=== PATIENT | male | born 1930 | race Caucasian/White ===

== ENCOUNTER 2019-11-19 12:19 | Day surgery (SDC) | payer MEDICARE ==
[~2019-11-19] VITALS: Ht 172.7 cm; Wt 108.0 kg
[2019-11-19] MEDS ORDERED: LACTATED RINGERS 1,000 ML IV SCH (12:37)
[2019-11-19] MEDS ORDERED: CARV6.252 PO (13:05)
[2019-11-19] MEDS ORDERED: OMEG1CAP2 PO (13:05)
[2019-11-19] MEDS ORDERED: TIOT4MIS3 INH (13:05)
[2019-11-19] MEDS ORDERED: SIMV40TA3 PO (13:05)
[2019-11-19] MEDS ORDERED: CLOB15CR19 TP (13:05)
[2019-11-19] MEDS ORDERED: BUME0.5T2 PO (13:05)
[2019-11-19] MEDS ORDERED: POTA10TA31 PO (13:05)
[2019-11-19] MEDS ORDERED: EZET10TA70 PO (13:05)
[2019-11-19] MEDS ORDERED: ZOLP10TA5 PO (13:05)
[2019-11-19 13:07] VITALS: BP 130/78
[2019-11-19] MEDS ORDERED: PLEASE ENTER ALLERGIES MC SCH (13:30)
[2019-11-19] MEDS ORDERED: PLEASE ENTER HEIGHT AND WEIGHT MC SCH (13:30)
[2019-11-19 14:00] LABS: ALANINE AMINOTRANSFERASE 23 U/L (12-78); ALBUMIN 3.6 g/dL (3.4-5.0); ANION GAP 5 mmol/L (5-15); CALCIUM 8.7 mg/dL (8.5-10.1); CHLORIDE 111 mmol/L (98-107); CREATININE 1.18 mg/dL (0.7-1.3)
[2019-11-19 14:02] LABS: ALKALINE PHOSPHATASE 70 U/L (45-117); BILIRUBIN,TOTAL 1.9 mg/dL (0.2-1.0)
[2019-11-19] MEDS ORDERED: FENTANYL PF 250 MCG/5ML ONE (15:07)
[2019-11-19] MEDS ORDERED: MIDAZOLAM 1 MG/ML, 2ML ONE (15:07)
[2019-11-19] MEDS ORDERED: PHENYLEPHRINE 10 MG/ML ONE (15:37)
[2019-11-19] MEDS ORDERED: CEFAZOLIN 1,000 MG ONE (15:37)
[2019-11-19] MEDS ORDERED: ROCURONIUM 10 MG/ML,10ML ONE (15:37)
[2019-11-19] MEDS ORDERED: DEXAMETHASONE 4 MG/ML, 1ML ONE (15:37)
[2019-11-19] MEDS ORDERED: PROPOFOL 10 MG/ML, 20ML ONE (15:37)
[2019-11-19] MEDS ORDERED: ONDANSETRON 2MG/ML, 2ML ONE (15:37)
[2019-11-19] MEDS ORDERED: SUGAMMADEX 200 MG/2 ML IVPush ONE (16:08)
[2019-11-19 16:15] LABS: MICROSCOPIC AUTO
[2019-11-19] MEDS ORDERED: hydrALAzine 20 MG/ML, 1ML ONE (16:56)
[2019-11-19] MEDS ORDERED: OXYcodone 5 MG/5 ML ORAL.SOL UDC PO PRN (17:00)
[2019-11-19] MEDS ORDERED: MEPERIDINE/PF 25MG/ML,1ML IVPush PRN (17:00)
[2019-11-19] MEDS ORDERED: HYDROmorphone 2 MG/ML, 1ML IVPush PRN (17:00)
[2019-11-19] MEDS ORDERED: ONDANSETRON 2MG/ML, 2ML IV PRN (17:00)
[2019-11-19] MEDS ORDERED: hydrALAzine 20 MG/ML, 1ML IV PRN (17:00)
[2019-11-19] MEDS ORDERED: FENTANYL PF 100 MCG/2ML IV PRN (17:00)
[2019-11-19] MEDS ORDERED: OPIUM/BELLADONNA SUPP.RECT 16.2-60 MG ONE (17:09)
[2019-11-19] MEDS ORDERED: OPIUM/BELLADONNA SUPP.RECT 16.2-60 MG PR PRN (17:30)
[2019-11-19] MEDS ORDERED: MORPHINE SULFATE 4 MG/ML, 1ML IV PRN (18:30)
== END 2019-11-19 20:00 | disposition home or self-care (01) ==
LOC: OUT 12:19 → 4NE 17:56 → OUT 20:00
PROVIDERS: ATTEND Urology
DX: C67.5 Malignant neoplasm of bladder neck (principal); I10 Essential (primary) hypertension; G47.33 Obstructive sleep apnea (adult) (pediatric); I25.2 Old myocardial infarction; N52.9 Male erectile dysfunction, unspecified; Z79.899 Other long term (current) drug therapy; Z88.1 Allergy status to other antibiotic agents; Z95.1 Presence of aortocoronary bypass graft; Z82.49 Family history of ischemic heart disease and other diseases of the circulatory system; Z80.3 Family history of malignant neoplasm of breast
CPT/HCPCS: 36415; 52235; 80053; 81001; 87086; 88305; 93005; J0360; J0690; J1100; J2250; J2370; J2405; J2704; J3010; J7120; G0378